=== PATIENT | female | born 1960 | race Caucasian/White ===

== ENCOUNTER 2024-09-17 12:44 | Outpatient (REF) | payer MEDICARE, SELFPAY ==
[2024-09-17 13:57] LABS: Anion Gap 11 (12-20); Blood Urea Nitrogen 13 mg/dL (9-16); Calcium 9.6 mg/dL (8.4-10.2); Carbon Dioxide 29 mmol/L (22-29); Chloride 106 mmol/L (96-108); Estimated Glomerular Filt Rate > 60; Glucose Random 85 mg/dL (60-115); Potassium 4.1 mmol/L (3.3-5.1); Sodium 142 mmol/L (135-145)
[2024-09-17 14:13] LABS: TSH reflex Free T4 1.17 uIU/mL (0.32-4.0)
[2024-09-17 14:32] LABS: Folate > 20.0 ng/mL (> or = 4.0); Vitamin B12 606 pg/mL (200-900)
== END 2024-09-17 12:45 | disposition home or self-care (01) ==
LOC: HO.LAB 12:44
PROVIDERS: PCP Physician Assistant Medical; Visit Provider Psychiatry & Neurology Neurology
DX: G31.84 Mild cognitive impairment of uncertain or unknown etiology (principal)
CPT/HCPCS: 36415; 80048; 82607; 82746; 84443

== ENCOUNTER → 2024-11-25 12:55 | Outpatient (REF) | payer MEDICARE, SELFPAY ==
--- OUTSIDE RECORDS SUMMARY | 2024-11-25 13:28 | XMS_ITS | Clinical Summary ---
Author Organization [facility] [address] [place] [address] [place] [address] Phone Care Team Providers Care Chamber Walker Name Role Phone Rich Bolanos Primary Care Provider [phone] Allergies Active Allergy Reactions Criticality Noted Date Comments Penicillins Other 09/19/2005 Dosen't remember Medications vitamin C tablet Take 1 tablet (100 mg total) by mouth 1 (one) time each day. 08/13/19 24 Active B complex tablet Take 1 tablet by mouth 1 (one) time each day. 08/13/19 24 Active bisacodyL (DULCOLAX) 5 mg EC tablet Take 2 tablets by mouth right before your first dose of liquid prep. 10/02/19 24 Active cholecalcifero l (VITAMIN D-3) 25 mcg (1,000 unit) tablet Take 1 tablet (1,000 Units total) by mouth 1 (one) time each day. 08/13/19 24 Active estradioL (ESTRACE) 0.01 % (0.1 mg/gram) vaginal cream APPLY TO VAGINAL OPENING EVERY SATURDAY, SATURDAY, AND SATURDAY DIRECTED 10/24/19 24 Active magnesium oxide (MAG-OX) 400 mg magnesium tablet Take 1 tablet (400 mg total) by mouth 2 (two) times a day. 08/13/19 24 Active multivitamin tablet Take 1 tablet by mouth 1 (one) time each day. 08/13/19 24 Active omega-3 acid ethyl esters (LOVAZA) 1 gram capsule Take 1 capsule (1 g total) by mouth 2 (two) times a day. 08/13/19 24 Active buPROPion XL (WELLBUTRIN XL) 150 mg 24 hr tablet Take 1 tablet (150 mg total) by mouth 1 (one) time each day in the morning. Do not crush, chew, or split. 30 each 11 05/15/19 25 Active triamcinolone (KENALOG) 0.1 % ointment APPLY TOPICALLY 3 TIMES A WEEK. 30 g 07/30/19 25 Active atorvastatin (LIPITOR) 40 mg tablet TAKE 1 TABLET BY MOUTH EVERY DAY 90 tablet 10/02/19 25 Active escitalopram (LEXAPRO) 10 mg tablet TAKE 1 TABLET BY MOUTH EVERY DAY 90 tablet 11/10/19 25 Active escitalopram (LEXAPRO) 10 mg tablet TAKE 1 TABLET BY MOUTH EVERY DAY 90 tablet 08/11/19 25 025 Discontinued Active Problems Problem Noted Date Diagnosed Date Dyspareunia in female 08/20/2018 Overview (03/18/2024): Last Assessment & Plan: Improved with treatment of LS and atrophy. Try coconut oil lubricant, preinsertion perineal massage, and superior positioning. 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 Continue [facility] Estrace. Lichen sclerosus 05/06/2018 Overview (03/18/2024): Last Assessment & Plan: Reviewed findings with patient. Well controlled. I reviewed the importance of regular maintenance topical steroid use to prevent symptoms, further scarring, and squamous cell cancer of the vulva. I also explained the importance of regular follow up to ensure she has no evidence of precancerous or cancerous changes and that she is not having side effects from her medication. I reviewed areas of application and amount of medication to use. Continue [facility] Mycolog. Vaginal atrophy 05/06/2018 Overview (03/18/2024): Last Assessment & Plan: Will switch from Vagifem to Estrace at the introitus which may have more benefit for dyspareunia. Reviewed similar low risk safety profile. Major depressive disorder with single episode Migraine 05/09/2016 Actinic keratosis 06/05/2011 Overview (03/18/2024): Actinic keratosis 05/27 right cheek Rosacea 03/25/2008 Mixed hyperlipidemia 01/31/2006 Encounters Date Type Department Care Team Description 09/23/2024 9:09 AM EDT - 09/23/2024 11:59 PM EDT Hospital Encounter Radiology Department - [address] [phone] Mild cognitive impairment of uncertain or unknown etiology Discharge Disposition: Home or Self Care 09/15/2024 10:00 AM EDT - 09/15/2024 11:59 PM EDT Hospital Encounter XRAY - [address] [phone] Unilateral primary osteoarthritis, left hip Discharge Disposition: Home or Self Care 09/04/[address] [phone] Rich Bolanos PA 08/27/2024 5:58 PM EDT - 08/27/2024 11:59 PM EDT Hospital Encounter Radiology Department - [address] [phone] Left lumbar radiculopathy; Inflammatory arthritis; Arthritis; Abnormal finding of blood chemistry, unspecified; Prediabetes; Subjective memory complaints Discharge Disposition: Home or Self Care from Last 3 Months Immunizations Name Administration Dates Next Due Influenza Quadravalent, MDCK , 0.5ml, preservative free (Flucelvax) 6mo and older 01/29/2020,02/20/2019 Influenza trivalent, 0.5mL, preservative free (Fluarix; FluLaval; Fluzone) ages 6mo and older (Afluria) 3 years and older 05/09/2016,02/22/2012 Zinc software SARS-CoV-2 COVID-19, mRNA, LNP-S, preservative free 08/25/2021,03/27/2021,08/04/2020,04/01/ 2021 Pneumococcal conjugate 20 va lent (Prevnar 20, PCV 20) 2mo and older 08/13/2023 Td Tetanus diptheria (Tdvax) 7yo and older 01/31/2006 Tdap Tetanus diptheria acell ular pertussis (Boostrix; Adacel) 7yo and older 05/09/2016 Surgical History Surgery Date Site/Laterality Comments COLONOSCOPY 07/20/2008 PROCEDURE: MO COLONOSCOPY FLX DX W/COLLJ SPEC WHEN PFRMD; COMMENT: Normal TONSILLECTOMY PROCEDURE: HISTORICAL TONSILLECTOMY COLONOSCOPY 01/26/2014 PROCEDURE: MO COLONOSCOPY FLX DX W/COLLJ SPEC WHEN PFRMD; COMMENT: Normal COLONOSCOPY 10/16/2023 PROCEDURE: HISTORICAL COLONOSCOPY; COMMENT: Normal 5 years Medical History Medical History Date Comments Mixed hyperlipidemia 01/31/2006 DX:Mixed hy perlipidemia Family history of colonic polyps 07/20/2008 DX:Family history of colonic polyps; COMMENT: Negative colonoscopy 07/20/2008, no colon cancer screening needed for 10 years. Historical Medical DX 02/02/2010 DX:Family history of cancer of the gastrointestinal tract Other specified personal his tory presenting hazards to health(V15.89) DX:Other specifie d personal history presenting hazards to health(V15.89); COMMENT: condyloma Family history of colon cancer 02/22/2012 D X:Family history of colon cancer Actinic keratosis, hx of DX:Acti gail keratosis, hx of Family History Medical History Relation Name Comments No Known Problems Aunt Other: not sure Father No Known Problems Maternal Grandfather No Known Problems Maternal Grandmother Colon cancer Mother Colon polyps Mother Hypertension Mother Stroke Mother Other: Ca other Mother's side no breast o r ovary; both maternal grandparents. No Known Problems Other No Known Problems Paternal Grandfather No Known Problems Paternal Grandmother No Known Problems Uncle Blindness Neg Hx Breast cancer Neg Hx Cataracts Neg Hx Glaucoma Neg Hx Macular degeneration Neg Hx Ovarian cancer Neg Hx Pancreatic cancer Neg Hx Prostate cancer Neg Hx Strabismus Neg Hx Uterine cancer Neg Hx Relation Name Status Comments Aunt Father Maternal Grandfather Maternal Grandmother Mother Alive hypertension , the patient is adopted , does not know anything about her father . no siblings Mother's side Other Paternal Grandfather Paternal Grandmother Uncle Social History Tobacco Use Types Packs/Day Years Used Date Smoking Tobacco: Never Smokeless Tobacco: Never Tobacco Cessation:Counseling Given: Not Answered Alcohol Use Standard Drinks/Week Comments Yes 0 (1 standard drink = 0.6 oz pur e alcohol) Housing Instability Answer Date Recorde d Are you worried that in the next 2 months you may not have stable housing? No 05/28/2024 Food Access & Nutrition Answer Date Rec orded Do you have access to a vari ety of food including fruits and vegetables? Yes 05/28/2024 Access to Healthcare Answer Date Record ed Within the last 3 months, ho w many times did you visit the emergency department for your medical care? 0 05/28/2024 Health Literacy Answer Date Recorded How often do you need to hav e someone help you when you read instructions, pamphlets, or other written material from your doctor or pharmacy? Never 05/28/2024 Caregiver: How often do you need to have someone help you when you read instructions, pamphlets, or other written material from your doctor or pharmacy? Not on file 05/28/2024 Financial Risk Answer Date Recorded How hard is it for you to pa y for the very basics like food, housing, medical care, and air conditioning / heating? Not very hard 05/28/2024 Transportation Answer Date Recorded Has the lack of transportati on kept you from meetings, work, or from getting things needed for daily living? No Has the lack of transportati on kept you from medical appointments or from getting medications? No 05/28/2024 Social Isolation Answer Date Recorded How often do you feel lonely or isolated from th ose around you? Never 05/28/2024 Food Risk Answer Date Recorded Within the past 12 months we worried whether our food would run out before we got money to buy more. Never true 05/28/2024 Within the past 12 months th e food we bought just didn't last and we didn't have money to get more. Never true 05/28/2024 Dependent Care Answer Date Recorded Do you need help finding or paying for care for your loved ones. For example, child care group leader or elderly care for an older adult? No 05/28/2024 Education Answer Date Recorded Do you think completing more education or training, like finishing a GED, going to college, or learning a trade, would be helpful for you? N/A 05/28/2024 Employment and Income Answer Date Recor ded During the last four weeks, have you been actively looking for work? No 05/28/2024 Living Situation Answer Date Recorded What is your living situation? 0 05/28/2024 Comments Unknown Sex and Gender Information Value Date Recorded Sex Assigned at Not on file Legal Sex Female 6:56 AM EST Gender Identity Not on file Sexual Orientation Not on file Obstetrics History Last Filed Vital Signs Vital Sign Reading Time Taken Comments Blood Pressure 152/82 08/18/2024 2:12 PM EDT A left arm Pulse 67 08/18/2024 2:12 PM EDT Temperature 36.2 C (97.2 F) 08/18/2024 1:34 PM EDT Respiratory Rate 14 08/18/2024 1:34 PM EDT Oxygen Saturation - - Inhaled Oxygen Concentration - - Weight 60.6 kg (133 lb 9.6 oz) 08/19/19 1:34 PM EDT Height 157.5 cm (5' 2 ) 08/18/2024 1:34 PM EDT Body Mass Index 24.44 08/18/2024 1:34 PM EDT Plan of Treatment Upcoming Encounters Date Type Department Care Team (Late st Contact Info) Description 01/21/2025 2:00 PM EDT Appointment Bone Density - [address] [phone] Health Maintenance Due Date Last Done Comments Zoster Vaccines (1 of 2) 1977 Osteoporosis Screening (Bone Density Screening) 03/24/2022 COVID-19 Vaccine ( season) 2023 08/25/2021, 03/27/2021, 08/04/2020, Additional history exists Medicare Annual Wellness Visit 08/12/2024 08/13/2023 Influenza Vaccine (#1) 2024 , 01/29/2020, 02/20/2019, Additional history exists Social Influencers of Health Screening 05/28/2025 05/28/2024 Breast Cancer Screening 06/05/2025 06/05/19 24, 04/02/2022, 12/26/2016 Falls Risk Assessment 08/18/2025 08/18/2024 DTaP,Tdap,and Td Vaccines (3 - Td or Tdap) 05/09/2026 05/09/2016, 01/31/2006 Cervical Cancer Screening: HPV 03/26/2027 03/26/2022 Colorectal Cancer Screening: Colonoscopy 10/15/2028 10/16/2023 Cholesterol Screening (Lipid Panel) 08/18/2029 08/18/2024, 08/13/2023, 08/13/2023 RSV Immunization Adult Patients (1 - 1-dose 75+ series) 2033 Hepatitis C Screening Completed 04/02/2014 Pneumococcal Vaccine: 50+ Years Completed 08/13/2023 Colorectal Cancer Screening: FIT-DNA (Cologuard) Discontinued 08/29/2023 Depression Screening Completed 08/11/2024, 08/13/19 24 HIB Vaccines Aged Out No longer eligi ble based on patient's age to complete this topic HPV Vaccines Aged Out No longer eligi ble based on patient's age to complete this topic Hepatitis A Vaccines Aged Out No long er eligible based on patient's age to complete this topic Hepatitis B Vaccines Aged Out No long er eligible based on patient's age to complete this topic IPV Vaccines Aged Out No longer eligi ble based on patient's age to complete this topic MMR Vaccines Aged Out No longer eligi ble based on patient's age to complete this topic Meningococcal ACWY Vaccine Aged Out N o longer eligible based on patient's age to complete this topic Meningococcal B Vaccine Aged Out No l onger eligible based on patient's age to complete this topic RSV Immunization Patients Under 20 months Aged Out No longer eligible based on patient's age to complete this topic Varicella Vaccines Aged Out No longer eligible based on patient's age to complete this topic Procedures Procedure Name Priority Date/Time Associated Diagnosis Comments MR BRAIN WO CONTRAST Routine 09/23/2024 9:51 AM EDT Mild cognitive impairment of uncertain or unknown etiology XR HIP 2-3 VIEWS LEFT Routine 09/15/2024 10:17 AM EDT Unilateral primary osteoarthritis, left hip MR LUMBAR SPINE WO CONTRAST Routine 08/27/2024 6:53 PM EDT Left lumbar radiculopathy Inflammatory arthritis Arthritis Abnormal finding of blood chemistry, unspecified Prediabetes Subjective memory complaints LIPID PANEL WITH REFLEX TO DIRECT LDL Routine 08/18/2024 2:41 PM EDT Left lumbar radiculopathy Inflammatory arthritis Arthritis Abnormal finding of blood chemistry, unspecified Prediabetes Subjective memory complaints COLONOSCOPY Routine 10/16/2023 DEPRESSION SCREENING Routine 08/13/2023 SCREENING MAMMOGRAPHY BI 2-VIEW BREAST INC CAD Routine 06/05/2023 11:26 AM EST Encounter for screening mammogram for malignant neoplasm of breast HPV Routine 03/26/2022 HEPATITIS C SCREENING Routine 04/02/2014 from Last 3 Months or Most Recently Relevant to Health Maintenance Results * MR Brain wo Contrast (09/23/2024 9:51 AM EDT) Anatomical Region Laterality Modality Head and Neck Magnetic Resonan ce 09/23/2024 1:55 PM EDT Impressions 09/24/2024 7:31 PM EDT Mildly progressive white matter signal abnormalities. No evidence of a recent infarction, intracranial hemorrhage, mass, or mass effect. POS - [id number] -------- FINAL REPORT -------- Dictated By: Colette Lugo Dictated Date: 09/23/2024 13:55 ET Assigned Physician: Colette Lugo Reviewed and Electronically Signed By: Colette Lugo Signed Date: 09/24/2024 19:31 ET Workstation ID: [id number] Transcribed By: Self Edit Transcribed Date: 09/23/2024 14:24 ET Narrative 09/24/2024 7:31 PM EDT EXAM: Brain MRI HISTORY: Memory impairment. COMPARISON: 11/03/2020 CORRELATION: None TECHNIQUE: Exam performed on a 1.5 Veronique high-field MRI scanner. Multiplanar imaging performed without contrast. FINDINGS: No restricted diffusion to indicate a recent infarct. No evidence of intracranial hemorrhage. Scattered T2/FLAIR hyperintense white matter signal abnormalities in the subcortical and deep white matter again noted. The dominant area in the right frontal lobe has enlarged now measuring up to 1.6 cm compared with 1.2 cm previously. Other smaller lesions have minimally enlarged and new lesions are present. Possible new small T2/FLAIR hyperintense area in the left fatmata. No evidence of a mass, mass effect, or midline shift. No hydrocephalus. Basal cisterns are patent. Chiari I malformation again noted.. Pituitary gland is not enlarged. Normal vascular flow-voids appear present in the major intracranial arteries at the skull base. No significant sinus disease in the visualized paranasal sinuses, signal artifact obscures portions of the left maxillary sinus. No significant fluid signal within mastoid air cells. Procedure Note Colette Lugo MD - 09/24/2024 EXAM: Brain MRI HISTORY: Memory impairment. COMPARISON: 11/03/2020 CORRELATION: None TECHNIQUE: Exam performed on a 1.5 Veronique high-field MRI scanner.Multiplanar imaging performed without contrast. FINDINGS: No restricted diffusion to indicate a recent infarct. No evidence ofintracranial hemorrhage. Scattered T2/FLAIR hyperintense white mattersignal abnormalities in the subcortical and deep white matter again noted.The dominant area in the right frontal lobe has enlarged now measuring upto 1.6 cm compared with 1.2 cm previously. Other smaller lesions haveminimally enlarged and new lesions are present. Possible new smallT2/FLAIR hyperintense area in the left fatmata. No evidence of a mass, mass effect, or midline shift. No hydrocephalus.Basal cisterns are patent. Chiari I malformation again noted.. Pituitarygland is not enlarged. Normal vascular flow-voids appear present in themajor intracranial arteries at the skull base. No significant sinus disease in the visualized paranasal sinuses, signalartifact obscures portions of the left maxillary sinus. No significantfluid signal within mastoid air cells. IMPRESSION: Mildly progressive white matter signal abnormalities. No evidence of arecent infarction, intracranial hemorrhage, mass, or mass effect. POS - [id number] -------- FINAL REPORT -------- Dictated By: Colette Lugo Dictated Date: 09/23/2024 13:55 ET Assigned Physician: Colette Lugo Reviewed and Electronically Signed By: Colette Lugo Signed Date: 09/24/2024 19:31 ET Workstation ID: [id number] Transcribed By: Self Edit Transcribed Date: 09/23/2024 14:24 ET Qasim Gore MD IMG MRI PROCEDURES Final Result * XR Hip 2-3 Views Left (09/15/2024 10:17 AM EDT) Anatomical Region Laterality Modality Lower Extremities, Hip Left Radiograp hic Imaging 09/15/2024 12:2 4 PM EDT Impressions 09/15/2024 12:25 PM EDT No acute fracture or dislocation of the left hip. Moderate osteoarthritic degenerative changes of the left hip -------- FINAL REPORT -------- Dictated By: Jerrell Dumont Dictated Date: 09/15/2024 12:24 ET Assigned Physician: Jerrell Dumont Reviewed and Electronically Signed By: Jerrell Dumont Signed Date: 09/15/2024 12:25 ET Workstation ID: [id number] Transcribed By: Self Edit Transcribed Date: 09/15/2024 12:24 ET Narrative 09/15/2024 12:25 PM EDT HISTORY: unilateral primary osteoarthritis left hip TECHNIQUE: Frontal and lateral radiographs of the left hip.An AP radiograph of the pelvis was obtained to assess joint symmetry. COMPARISON: None FINDINGS: No acute fracture or dislocation. There is moderate joint space narrowing at the left hip with subchondral sclerosis. Femoral head is well-seated within the acetabulum. Small osteophytes at the inferior femoral head. Large amount stool throughout the colon. Procedure Note Jerrell Dumont MD - 09/15/2024 HISTORY: unilateral primary osteoarthritis left hip TECHNIQUE: Frontal and lateral radiographs of the left hip.An APradiograph of the pelvis was obtained to assess joint symmetry. COMPARISON: None FINDINGS: No acute fracture or dislocation. There is moderate joint space narrowingat the left hip with subchondral sclerosis. Femoral head is well-seatedwithin the acetabulum. Small osteophytes at the inferior femoral head.Large amount stool throughout the colon. IMPRESSION: No acute fracture or dislocation of the left hip. Moderate osteoarthritic degenerative changes of the left hip -------- FINAL REPORT -------- Dictated By: Jerrell Dumont Dictated Date: 09/15/2024 12:24 ET Assigned Physician: Jerrell Dumont Reviewed and Electronically Signed By: Jerrell Dumont Signed Date: 09/15/2024 12:25 ET Workstation ID: [id number] Transcribed By: Self Edit Transcribed Date: 09/15/2024 12:24 ET Jr Michael DO IMG XR PROCEDURES Final Result * MR Lumbar Spine wo Contrast (08/27/2024 6:53 PM EDT) Anatomical Region Laterality Modality L-spine, Spine Magnetic Resonan ce 08/28/2024 3:26 AM EDT Impressions 08/28/2024 3:37 AM EDT Multilevel lumbar spondylosis, as above, most prominent at L3-L4, L4-L5 and L5- S1 -------- FINAL REPORT -------- Dictated By: Kamila Barriga Dictated Date: 08/28/2024 03:26 ET Assigned Physician: Kamila Barriga Reviewed and Electronically Signed By: Kamila Barriga Signed Date: 08/28/2024 03:37 ET Workstation ID: [id number] Transcribed By: Self Edit Transcribed Date: 08/28/2024 03:26 ET Narrative 08/28/2024 3:37 AM EDT INDICATION: Left leg pain, lumbar radiculopathy COMPARISON: None TECHNIQUE: Multiplanar, multisequence MRI was performed of the lumbar spine without IV contrast. FINDINGS: Study assumes 5 lumbar type vertebral bodies. Grade 1 retrolisthesis of L1 on L2 and grade 1 anterolisthesis of L4 on L5.. Conus terminates at L1. Bone marrow signal is heterogeneous. Visualized cord signal is unremarkable. Multilevel disc desiccation. Disc space height loss at 4 L5. Multilevel anterior marginal osteophyte formation. Specific findings are seen at the following levels: L1-L2:Disc bulge with ligamentum flavum infolding and facet arthropathy without significant spinal canal stenosis or neural foraminal narrowing. Left-sided perineural cysts. L2-L3:Ligamentum flavum infolding with facet arthropathy. No significant spinal canal stenosis or neural foraminal narrowing. L3-L4:Diffuse disc bulge with ligamentum flavum infolding and facet arthropathy which effaces the ventral thecal sac and results in mild to moderate spinal canal stenosis. Mild bilateral neural foraminal narrowing. L4-L5:Uncovering of the disc with ligamentum flavum infolding and facet arthropathy which results in severe spinal canal stenosis. Mild to moderate bilateral neural foraminal narrowing. L5-S1:Disc bulge with ligamentum flavum infolding and facet arthropathy which effaces the ventral thecal sac and results in mild spinal canal stenosis. There is mild to moderate bilateral neural foraminal narrowing. Miscellaneous: Visualized SI joints, paraspinal muscles and retroperitoneum are unremarkable. Procedure Note Kamila Barriga MD - 08/28/2024 INDICATION: Left leg pain, lumbar radiculopathy COMPARISON: None TECHNIQUE: Multiplanar, multisequence MRI was performed of the lumbarspine without IV contrast. FINDINGS: Study assumes 5 lumbar type vertebral bodies. Grade 1 retrolisthesis ofL1 on L2 and grade 1 anterolisthesis of L4 on L5.. Conus terminates atL1. Bone marrow signal is heterogeneous. Visualized cord signal isunremarkable. Multilevel disc desiccation. Disc space height loss at 4L5. Multilevel anterior marginal osteophyte formation. Specific findingsare seen at the following levels: L1-L2:Disc bulge with ligamentum flavum infolding and facet arthropathywithout significant spinal canal stenosis or neural foraminal narrowing.Left-sided perineural cysts. L2-L3:Ligamentum flavum infolding with facet arthropathy. No significantspinal canal stenosis or neural foraminal narrowing. L3-L4:Diffuse disc bulge with ligamentum flavum infolding and facetarthropathy which effaces the ventral thecal sac and results in mild tomoderate spinal canal stenosis. Mild bilateral neural foraminalnarrowing. L4-L5:Uncovering of the disc with ligamentum flavum infolding and facetarthropathy which results in severe spinal canal stenosis. Mild tomoderate bilateral neural foraminal narrowing. L5-S1:Disc bulge with ligamentum flavum infolding and facet arthropathywhich effaces the ventral thecal sac and results in mild spinal canalstenosis. There is mild to moderate bilateral neural foraminalnarrowing. Miscellaneous: Visualized SI joints, paraspinal muscles andretroperitoneum are unremarkable. IMPRESSION: Multilevel lumbar spondylosis, as above, most prominent at L3-L4, L4-L5and L5-S1 -------- FINAL REPORT -------- Dictated By: Kamila Barriga Dictated Date: 08/28/2024 03:26 ET Assigned Physician: Kamila Barriga Reviewed and Electronically Signed By: Kamila Barriga Signed Date: 08/28/2024 03:37 ET Workstation ID: [id number] Transcribed By: Self Edit Transcribed Date: 08/28/2024 03:26 ET Rich OREILLY IM MRI PROCEDURES Final Result * (ABNORMAL) Lipid panel with reflex to direct LDL (08/18/2024 2:41 PM EDT) Cholesterol 223(H) 0 - 200 mg/dL LAB CHEMISTRY METHOD 08/18/2024 5:40 PM EDT [facility] Triglycerides 65 0 - 150 mg/dL LAB CHEMISTRY METHOD 08/18/2024 5:40 PM EDT [facility] HDL 89 >=40 mg/dL LAB CHEMISTRY METHOD 08/18/2024 5:40 PM EDT [facility] LDL Calculated 121(H) 0 - 100 mg/dL LAB CHEMISTRY METHOD 08/18/2024 5:40 PM EDT [facility] VLDL Cholesterol Ju[place]o 13 mg/dL LAB CHEMISTRY METHOD 08/18/2024 5:40 PM EDT [facility] Non HDL Chol. (LDL+VLDL) 134 <145 mg/dL LAB CHEMISTRY METHOD 08/18/2024 5:40 PM EDT [facility] Chol/HDL Ratio 2.5 0.0 - 4.4 LAB CHEMISTRY METHOD 08/18/2024 5:40 PM [facility] Blood Venous blood specimen / Unknown Venipuncture / Unknown 08/18/2024 2:41 PM EDT 08/18/2024 2:41 PM EDT Rich OREILLY LAB BLOOD ORDERABLES Mariann l Result [facility] [address] [place] [address], * Colonoscopy (10/16/2023) Colonoscopy no interpretation , abstracted Anatomical Region Laterality Modality Other Historical Provider MD HEALTH MAINTENANCE Final Result * Depression Screening (08/13/2023) Depression Screening abstracted Historical Provider MD HEALTH MAINTENANCE Final Result * SCREENING MAMMOGRAPHY BI 2-VIEW BREAST INC CAD (06/05/2023 11:26 AM EST) Anatomical Region Laterality Modality Radiographic Eugenia ging 04/02/2022 9:05 AM EST Narrative 06/05/2023 7:09 PM EST This is a summary report. The complete report is available in the patient's medical record. If you cannot access the medical record, please contact the sending organization for a detailed fax or copy. Exam: Screening mammogram Findings: Digital bilateral full-field screening mammography is performed with tomosynthesis and interpreted with the aid of computer-aided detection. Comparison is made with 04/02/2022 and 12/26/2016. Breast parenchyma is composed of scattered fibroglandular densities. No new suspicious mass, architectural distortion, or suspicious calcifications. Impression: No mammographic evidence of malignancy. BI-RADS 1 - negative Procedure Note Colette Lugo MD - 12/02/2023 This is a summary report. The complete report is available in thepatient's medical record. If you cannot access the medical record, pleasecontact the sending organization for a detailed fax or copy. Exam: Screening mammogram Findings: Digital bilateral full-field screening mammography is performedwith tomosynthesis and interpreted with the aid of computer-aideddetection. Comparison is made with 04/02/2022 and 12/26/2016. Breast parenchyma is composed of scattered fibroglandular densities. Nonew suspicious mass, architectural distortion, or suspiciouscalcifications. Impression: No mammographic evidence of malignancy. BI-RADS 1 - negative Janette Cox MD IMG XR PROCEDURES Final Res ult * Cervical Cancer Screening: HPV (03/26/2022) Cervical Cancer Screening: HPV negative, abstracted Historical Provider HEALTH MAINTENANCE Final Result * Hepatitis C Screening (04/02/2014) Hepatitis C Screening abstracted Historical Provider HEALTH MAINTENANCE Final Result from Last 3 Months or Most Recently Relevant to Health Maintenance Insurance MEDICARE [facility] Care Teams Chamber Walker Relationship Specialty Start Date End Date Rich Bolanos PA [address] [place] [address] PCP - General Internal Medicine 09/21/20
--- OUTSIDE RECORDS SUMMARY | 2024-11-25 13:28 | XMS_ITS | Clinical Summary ---
Author Organization [facility] Address [address] [place] [address] Phone Care Team Providers Care Decontaminator Name Role Phone Unavailable Primary Care Provider Unavailabl e Social History Tobacco Use Types Packs/Day Years Used Date Smoking Tobacco: Never Assessed Comments Unknown Sex and Gender Information Value Date Recorded Sex Assigned at Not on file Legal Sex Female 8:12 PM EST Gender Identity Not on file Sexual Orientation Not on file Plan of Treatment Not on file Medical Devices Not on file Additional Source Comments The information contained in this document represents components of the legal health record. It is not the complete legal health record.[facility]
== END ==
LOC: HO.SL 12:55
PROVIDERS: PCP Physician Assistant Medical; Visit Provider Psychiatry & Neurology Neurology
DX: G47.10 Hypersomnia, unspecified (principal); G47.30 Sleep apnea, unspecified
CPT/HCPCS: 95806

== ENCOUNTER → 2024-11-25 21:00 | Outpatient (BNV) | payer MEDICARE, SELFPAY | PROVIDERS: PCP Physician Assistant Medical; Visit Provider Internal Medicine | DX: G47.10 Hypersomnia, unspecified (principal) | CPT/HCPCS: 95806 ==

== ENCOUNTER 2025-01-19 14:44 | Outpatient (AMB) | payer MEDICARE, SELFPAY ==
--- NOTE | 2025-01-19 15:02 | MHC.OFFVIS ---
Intake Visit Reasons: MRI review Allergies Penicillins Allergy (Unknown, Verified 01/18/25 11:22) Unknown HPI Comments Details: This is a 64-year-old woman who is here with her regarding some concerns about her cognitive health.?She feels fine. He feels it has not changed. She has some difficulty with names of people and it takes her longer to figure things out.? She takes longer to process information and reply and sometimes has difficulty with word searching for common words.? Her confirms that this has been going on for 2 years.? He also notes that she gets overwhelmed with information.? She has had some increased anxiety and has a history of depression which is under control.? There is no history of head trauma.? No physical complaints.? She has not lost any functional ability.? She still drives but has always been bad with directions. Lately, she's been snoring more.? On a few occasions he has found her not breathing for a minute and then waking up with? a snorting sound. Used to get a lot of bad migraines in her past. [facility] Medical History (Updated 01/19/25 @ 15:20 by Qasim Gore MD) Sleep apnea MCI (mild cognitive impairment) Review of Systems Const Details: ?Sleep:? Difficulty getting to sleepdenies.? Difficulty maintaining sleepdenies?.? Urge to move legsdenies.? Teeth grindingdenies.? Shouting or Kicking during sleepdenies.? Abnormal behavior during sleepdenies.? Excessive sleepadmits.? Snoringadmits.? Daytime sleepinessdenies. ???General/Constitutional:? Change in appetitedenies.? Chillsdenies.? Fatiguedenies.? Feverdenies.? Weight gaindenies.? Weight lossdenies. ???Ophthalmologic:? Blurred visiondenies.? Diminished visual acuitydenies. ???ENT:? Stuffinessdenies.? Decreased hearingadmits.? Dry mouthdenies.? Ear paindenies.? Nosebleeddenies.? Ringing in the earsdenies.? Sinus paindenies.? Sore throatdenies.? Swollen glandsdenies. ???Endocrine:? Cold intolerancedenies.? Excessive thirstdenies.? Frequent urinationdenies.? Heat intolerancedenies. ???Respiratory:? Shortness of breathdenies.? Chest paindenies.? Coughdenies. ???Breast:? Breast lumpdenies.? Nipple dischargedenies. ???Cardiovascular:? Chest pain at restdenies.? Chest pain with exertiondenies.? Claudicationdenies.? Dizzinessdenies.? Fluid accumulation in the legsdenies.? Irregular heartbeatdenies.? Palpitationsdenies. ???Gastrointestinal:? Abdominal paindenies.? Constipationdenies.? Diarrheadenies.? Difficulty swallowingdenies.? Heartburndenies.? Nauseadenies.? Rectal bleedingdenies. ???Hematology:? Easy bruisingdenies.? Prolonged bleedingdenies. ???Genitourinary:? Frequent urinationdenies.? Urgencydenies.? Incontinencedenies.? Erectile Dysfunctiondenies. ???Musculoskeletal:? Neck paindenies.? Back paindenies.? Muscle achesadmits.? Painful jointsadmits.? Sciaticadenies.? Weaknessleft lg?. ???Podiatric:? Difficulty walkingdenies.? Foot numbnessdenies. ???Neurologic:? Difficulty swallowingdenies.? Balance difficultydenies.? Coordinationnormal.? Difficulty speakingdenies.? Dizzinessdenies.? Faintingdenies.? Gait abnormalitydenies.? Headachedenies.? Loss of strengthdenies.? Loss of use of extremitydenies.? Low back paindenies.? Memory lossadmits.? Seizuresdenies.? Ticsdenies.? Tingling/Numbnessleft leg and face.? Transient loss of visiondenies.? Tremordenies. ???Psychiatric:? Anxietyadmits.? Auditory/visual hallucinationsdenies.? Delusionsdenies.? Depressed moodadmits.? Stressorsdenies.? Substance abusedenies.? Suicidal thoughtsdenies. Physical Exam Neuro Other: Neurological: Abnormal neurological findings:??MMS 30/30?.?Mental Status:??alert and oriented X 3,?Normal attention, orientation, memory and affect.?Cranial Nerves:??Pupils are equal, round and reactive to light. Fundoscopy shows normal disc bilaterally. External occular muscles are intact. Visual evans are full, no ptosis. Face is symmetrical, no facial weakness or droop. Facial sensations are normal. Tongue protrudes in midline. Palate elevates symmetrically. Shoulder shrugging is normal..?Motor Examination:??Normal muscle tone, bulk and strength,?No atrophy or fasciculations,?No drift of the extended upper extremities,?Deep tendon reflexes are 2+?,?Plantars are flexor?.?Motor Strength:?Proximal Muscles (out of 5):5Distal Muscles (out of 5):5Neck Flexors (out of 5):5Neck Extensors (out of 5):5Deltoid (out of 5):5Biceps (out of 5):5Triceps (out of 5):5Serratus Anterior (out of 5):5Wrist Extensors (out of 5):5APB (out of 5):5Finger Spread (out of 5):5Ileopsoas (out of 5):5Quadriceps (out of 5):5Hamstrings (out of 5):5Tibialis Anterior (out of 5):5Peronei (out of 5):5EDB (out of 5):5Gastrocnemius (out of 5):5Straight Leg Raising:??90 degrees.?Sensory Exam:??Normal light touch, temperature, pinprick, vibration and joint-position sensations?,?Rhomberg sign is absent.?Coordination:??no ataxia,?no titubation,?sehyht-rp-tnzj, mzbk-lzpi-aslh test and rapid alternating movements were normal.?Gait Exam:??Within normal limits.?Cerebellar Signs:??Vmkiqz-bw-diec and bkay-bv-anfl is normal,?no dysdiadochokinesia?.?Extrapyramidal System:??No tremor, rigidity with normal facial expressions,?No bradykinesia, no bradyphrenia. Normal arm swing and posture. No propulsion or retropulsion.?Speech:??Normal,?no dysphasia or dysarthria..? Mini Mental Status Exam: Level of Consciousness:??Alert.?Orientation:??Knows correct year, month, date, day and season,?Knows correct city, county and state. Knows correct location and floor.?Registration:??Able to register 3 objects.?Attention:??Serial 7's performed accurately to 65.?Recall:??Able to recall 3 out of 3 objects.?Language:??Normal spontaneous speech, fluency, repetition,naming, comprehension, reading and writing.?Total Score:??30/30.? General Examination: GENERAL APPEARANCE:??normal,?in no acute distress.?HEAD:??normocephalic,?atraumatic.?EYES:??sclera non-icteric,?conjunctiva clear.?EARS:??auditory canal clear,?tympanic membrane intact, clear.?NOSE:??no lesions.?ORAL CAVITY:??gums normal,?mucosa moist,?no lesions.?THROAT:??clear.?NECK/THYROID:??no cervical lymphadenopathy,?thyroid normal,?neck supple, full range of motion,?no carotid bruit.?SKIN:??no rashes,?no significant birthmarks.?HEART:??S1, S2 normal,?no murmurs.?LUNGS:??clear anteriorly and posteriorly.?CHEST:??no gross rib deformity,?clear to auscultation.?BACK:??normal exam of spine.?EXTREMITIES:??no edema.?PERIPHERAL PULSES:??normal.?PSYCH:??alert, oriented,?cognitive function intact,?cooperative with exam.? Assessment & Plan Assessment & Plan (1) MCI (mild cognitive impairment): Comment: September 2024 labs normal 09/23/2024 MRI of the brain scattered T2/FLAIR hyperintense white matter signal abnormalities in the subcortical and deep white matter with slight progression compared to the MRI of October 2020 the largest area in the right frontal lobe measures 1.6 cm possible new small T2/FLAIR hyperintensity in the left fatmata Chiari type 1 malformation Code(s): G31.84 - Mild cognitive impairment of uncertain or unknown etiology Category: Medical (2) Sleep apnea: Comment: 11/25/2024 normal home sleep study with no evidence of obstructive sleep apnea Code(s): G47.30 - Sleep apnea, unspecified Category: Medical (3) White matter abnormality present on magnetic resonance imaging: Code(s): R90.82 - White matter disease, unspecified Category: Medical Plan Labs, normal sleep study and MRI abnormalities were reviewed with the patient and her . At this point we have decided not to pursue further workup. A follow-up MRI in 2 years is recommended for comparison Coding Level of Care Code Est Pt Level 4 (92472) Diagnoses MCI (mild cognitive impairment) G31.84 Sleep apnea G47.30 White matter abnormality present on magnetic resonance imaging R90.82
--- OUTSIDE RECORDS SUMMARY | 2025-01-19 18:01 | XMS_ITS | Encounter Summary ---
Author Organization [facility] Address [address] [place] [address] Care Team Providers Care Java Analyst Name Role Phone Rich Bolanos PA-C Primary Care Provider [phone] Reason for Visit * Reason Comments E-prescribe Rx Request Encounter Details Date Type Department Care Team Description 09/28/[address] [facility] [address] [place] [id number] Rich Bolanos PA-C [address] [place] [address] [phone] E-prescribe Rx Request Social History Tobacco Use Types Packs/Day Years Used Date Smoking Tobacco: Never Smokeless Tobacco: Never Alcohol Use Standard Drinks/Week Comments Yes 0 (1 standard drink = 0.6 oz pur e alcohol) rarely Sex Assigned at Date Recorded Not on file Job Start Date Occupation Industry Not on file Not on file Not on file documented as of this encounter Miscellaneous Notes * Telephone Encounter - William Pearson M.A. - 09/29/2023 5:28 PM EDT Last ov 08/13/23 next ov 01/31/24 Lab Results Component Value Date NA 142 08/13/2023 K 4.5 08/13/2023 CO2 27 08/13/2023 CL 109 08/13/2023 BUN 10 08/13/2023 CREAT 0.89 08/13/2023 GLU 91 08/13/2023 CA 9.0 08/13/2023 GFR 72 08/13/2023 documented in this encounter Plan of Treatment Not on file documented as of this encounter Visit Diagnoses Not on filedocumented in this encounter Additional Health Concerns Infection Onset Date Last Indicated Resolved Time COVID-19 Comment:Patient reporting positive test 12/2312/23/2022 12/24/2022 documented as of this encounter Care Teams Java Analyst Relationship Specialty Start Date End Date Rich Bolanos PA-C [address] [place] [address] PCP - General Internal Medicine 09/21/20 documented as of this encounter
--- OUTSIDE RECORDS SUMMARY | 2025-01-19 18:01 | XMS_ITS | Encounter Summary ---
Author Organization [facility] Address [address] [place] [address] Care Team Providers Care Warp Knitter Name Role Phone Rogelio Taylor MD Primary Care Provider + [phone] Rich Bolanos PA-C Primary Care Provider [phone] Encounter Details Date Type Department Care Team Description 10/10/2017 Release of Information Medical Records [address] [place] [id number] Abstract, Provider Social History Tobacco Use Types Packs/Day Years Used Date Smoking Tobacco: Never Smokeless Tobacco: Never Alcohol Use Standard Drinks/Week Comments Yes 0 (1 standard drink = 0.6 oz pur e alcohol) 8 drinks per yr Sex Assigned at Date Recorded Not on file Job Start Date Occupation Industry Not on file Not on file Not on file documented as of this encounter Plan of Treatment Not on file documented as of this encounter Visit Diagnoses Not on filedocumented in this encounter Additional Health Concerns Infection Onset Date Last Indicated Resolved Time COVID-19 Comment:Patient reporting positive test 12/2312/23/2022 12/24/2022 documented as of this encounter Care Teams Warp Knitter Relationship Specialty Start Date End Date Rogelio Taylor MD [address] [place] [address] PCP - General 03/07/2000 09/20/20 Rich Bolanos PA-C [address] [place] [address] [phone] PCP - General Internal Medicine 09/21/20 documented as of this encounter
--- OUTSIDE RECORDS SUMMARY | 2025-01-19 18:01 | XMS_ITS | Encounter Summary ---
Author Organization [facility] Address [address] [place] [address] Care Team Providers Care Architect Naval Name Role Phone Rogelio Taylor MD Primary Care Provider + [phone] Rich Bolanos PA-C Primary Care Provider [phone] Reason for Visit * Reason Comments E-prescribe Rx Request Encounter Details Date Type Department Care Team Description 03/23/2019 Refill OBGYN - [place] [address] [place] [address] Janette Henry MD [address] [place] [address] [phone] E-prescribe Rx Request Social History Tobacco Use [...] encounter Miscellaneous Notes * Telephone Encounter - Carline Mcintosh - 03/24/2019 11:35 AM EST Pt has upcoming appointment 03/31/[address] henry please consider refill * Telephone Encounter - Kristal Henderson - 03/24/2019 11:13 AM EST WHEN WAS THE PATIENTS LAST ANNUAL WELT SLASHER EXAM? 01/23/18 Does patient have an upcoming appointment? Yes 03/31/19 (THE MEDICATION REQUESTED IS ON THE MED LIST ABOVE) Did you check the Pharmacy information above?: NO Indicate how soon the patient needs the script: HARSHA Patient would like script to be: E-PRESCRIBED/FAXED TO PHARMACY Is the doctor here today?: YES Can the message wait until the doctor returns?: NO Has the patient been told that the prescription will not be filled until the end of the day? NO Payor: [employer] FFS / Plan: [facility] [employer] / Product Type: MEDICAID RISK documented in this encounter Plan of Treatment Not on file documented as of this encounter Visit Diagnoses Diagnosis Lichen sclerosus Circumscribed scleroderma Vaginal atrophy Postmenopausal atrophic vaginitis documented in this encounter Additional Health Concerns Infection Onset Date Last Indicated Resolved Time COVID-19 Comment:Patient reporting positive test 12/2312/23/2022 12/24/2022 documented as of this encounter Care Teams Architect Naval Relationship Specialty Start Date End Date Rogelio Taylor MD [address] [place] [address] PCP - General 03/07/2000 09/20/20 Rich Bolanos PA-C [address] [place] [address] [phone] PCP - General Internal Medicine 09/21/20 documented as of this encounter
--- OUTSIDE RECORDS SUMMARY | 2025-01-19 18:01 | XMS_ITS | Encounter Summary ---
Author Organization [facility] Address [address] [place] [address] Care Team Providers Care Boarding House Manager Name Role Phone Rogelio Taylor MD Primary Care Provider + [phone] Rich Bolanos PA-C Primary Care Provider [phone] Encounter Details Date Type Department Care Team Description 10/18/2017 [employer] Physical Education Teacher Report Medical Records [address] [place] [phone] Abstract, Provider Social History Tobacco Use Types [...] documented as of this encounter Care Teams Boarding House Manager Relationship Specialty Start Date End Date Rogelio Taylor MD [address] [place] [address] PCP - General 03/07/2000 09/20/20 Rich Bolanos PA-C [address] [place] [address] PCP - General Internal Medicine 09/21/20 documented as of this encounter
--- OUTSIDE RECORDS SUMMARY | 2025-01-19 18:01 | XMS_ITS | Encounter Summary ---
Author Organization [facility] Address [address] [place] [address] Care Team Providers Care Wrapper Sheeter Name Role Phone Rogelio Taylor MD Primary Care Provider + [phone] Rich Bolanos PA-C Primary Care Provider [phone] Reason for Visit * Reason Onset Date Comments refill request 03/13/2020 Encounter Details Date Type Department Care Team Description 03/13/2020 Refill Adult Medicine [address] [address] Rogelio Taylor MD [address] [place] [address] [phone] refill request Social History Tobacco Use Types Packs/Day Years [...] encounter Miscellaneous Notes * Telephone Encounter - Lara Whyte M.A. - 03/14/2020 2:59 PM EST Lab Results Component Value Date CHOL 224 01/19/2020 LDL 116 01/19/2020 HDL 88 01/19/2020 TRIG 100 01/19/2020 SGOT 18 01/19/2020 SGPT 20 01/19/2020 * Telephone Encounter - Carline Sawyer - 03/13/2020 1:43 PM EST Patient would like script to be: E-PRESCRIBED/FAXED TO PHARMACY WHEN WAS THE PATIENT'S LAST APPOINTMENT IN ADULT MEDICINE? 08/21/2019 WHEN WAS THE LAST TIME THE PATIENT SAW THEIR PCP? 07/15/18 Does patient have an upcoming appointment? No-unable to reach left [facility] to call for appointment due to refill request. Appt due (THE MEDICATION REQUESTED IS ON THE MED LIST ABOVE) All of the medications requested were on the CURRENT MEDS list Did you check the Pharmacy information above?: YES Patient wants: 90 -day supply Is this a mail order prescription request ? NO If the refill is from a FAXED refill request what is the RX # listed on the fax? N/A Patients current insurance carrier is: Payor: [employer] FFS / Plan: [employer] / Product Type: MEDICAID RISK documented in this encounter Plan of Treatment Not on file documented as of this encounter Visit Diagnoses Not on filedocumented in this encounter Additional Health Concerns Infection Onset Date Last Indicated Resolved Time COVID-19 Comment:Patient reporting positive test 12/2312/23/2022 12/24/2022 documented as of this encounter Care Teams Wrapper Sheeter Relationship Specialty Start Date End Date Rogelio Taylor MD [address] [place] [address] PCP - General 03/07/2000 09/20/20 Rich Bolanos PA-C [address] [place] [address] PCP - General Internal Medicine 09/21/20 documented as of this encounter
--- OUTSIDE RECORDS SUMMARY | 2025-01-19 18:01 | XMS_ITS | Encounter Summary ---
Author Organization [facility] Address [address] [place] [address] Care Team Providers Care Audio Engineer Name Role Phone Rogelio Taylor MD Primary Care Provider + [phone] Rich Bolanos PA-C Primary Care Provider Reason for Visit * Reason Comments E-prescribe Rx Request Encounter Details Date Type Department Care Team Description 04/19/2018 Refill OBGYN - [place] [address] [place], [place] [phone] Anahi Sandoval MD E-prescribe Rx Request Social History Tobacco Use [...] encounter Miscellaneous Notes * Telephone Encounter - Pamela Carter - 04/21/2018 10:35 AM EST WHEN WAS THE PATIENTS LAST ANNUAL WAREHOUSE DISTRIBUTION MANAGER EXAM? 01/2018 Does patient have an upcoming appointment? Yes [facility] 05/06/18 (THE MEDICATION REQUESTED IS ON THE MED LIST ABOVE) Did you check the Pharmacy information above?: NO Indicate how soon the patient needs the script: BY THE END OF THE DAY Patient would like script to be: E-PRESCRIBED/FAXED TO PHARMACY Is the doctor here today?: NO Can the message wait until the doctor returns?: NO Has the patient been told that the prescription will not be filled until the end of the day? NO Payor: [employer] FFS / Plan: [employer] / Product Type: MEDICAID RISK documented in this encounter Plan of Treatment Not on file documented as of this encounter Visit Diagnoses Diagnosis Atrophic vaginitis Postmenopausal atrophic vaginitis documented in this encounter Additional Health Concerns Infection Onset Date Last Indicated Resolved Time COVID-19 Comment:Patient reporting positive test 12/2312/23/2022 12/24/2022 documented as of this encounter Care Teams Audio Engineer Relationship Specialty Start Date End Date Rogelio Taylor MD [address] [place] [phone] PCP - General 03/07/2000 09/20/20 Rich Bolanos PA-C [address] [place] [address] PCP - General Internal Medicine 09/21/20 documented as of this encounter
--- OUTSIDE RECORDS SUMMARY | 2025-01-19 18:01 | XMS_ITS | Encounter Summary ---
Author Organization [facility] Address [address] [place] [address] Care Team Providers Care Fisher Trap Name Role Phone Rogelio Taylor MD Primary Care Provider + [phone] Rich Bolanos PA-C Primary Care Provider [phone] Reason for Visit * Reason Comments E-prescribe Rx Request Encounter Details Date Type Department Care Team Description 07/31/2019 Refill OBGYN - [place] [address] [place] [address] Janette Cox MD [address] [place] [phone] E-prescribe Rx Request Social History Tobacco Use [...] encounter Miscellaneous Notes * Telephone Encounter - Erica Light C.M.A. - 07/31/2019 3:30 PM EDT Please consider refill for pt. DL * Telephone Encounter - Pamela Carter - 07/31/2019 3:15 PM EDT WHEN WAS THE PATIENTS LAST ANNUAL SENIOR MEDICAL TRANSCRIPTIONIST EXAM? 01/2018 Does patient have an upcoming appointment? No (THE MEDICATION REQUESTED IS ON THE MED [...] the end of the day? 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
--- OUTSIDE RECORDS SUMMARY | 2025-01-19 18:01 | XMS_ITS | Clinical Summary ---
Author Organization [facility] [address] [place] [address] [place] [address] Phone Care Team Providers Care Air Brake Man Name Role Phone Rich Bolanos Primary Care Provider [phone] Allergies Active Allergy Reactions Criticality Noted Date [...] A WEEK. 30 g 07/30/19 25 Active escitalopram (LEXAPRO) 10 mg tablet TAKE 1 TABLET BY MOUTH EVERY DAY 90 tablet 11/10/19 25 Active atorvastatin (LIPITOR) 40 mg tablet TAKE 1 TABLET BY MOUTH EVERY DAY 90 tablet 12/30/19 25 Active atorvastatin (LIPITOR) 40 mg tablet TAKE 1 TABLET BY MOUTH EVERY DAY 90 tablet 10/02/19 25 025 Discontinued Active Problems Problem Noted Date Diagnosed Date Dyspareunia in female 08/20/2018 Overview (03/18/2024): Last Assessment & Plan: Improved with treatment of LS and atrophy. Try coconut oil lubricant, preinsertion perineal massage, and superior positioning. 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 Continue [facility] Estrace. Lichen sclerosus 05/06/2018 Overview (03/18/2024): Last [...] and amount of medication to use. Continue [facility] Mycolog. Vaginal atrophy 05/06/2018 Overview (03/18/2024): Last Assessment & Plan: Will switch from Vagifem to Estrace at the introitus which may have more benefit for dyspareunia. Reviewed similar low risk safety profile. Major depressive disorder with single episode Migraine 05/09/2016 Actinic keratosis 06/05/2011 Overview (03/18/2024): Actinic keratosis 05/27 right cheek Rosacea 03/25/2008 Mixed hyperlipidemia 01/31/2006 Immunizations Immunization Administration Dates Next Due Influenza Quadravalent, MDCK , 0.5ml, preservative free (Flucelvax) 6mo and older 01/29/2020,02/20/2019 Influenza trivalent, 0.5mL, preservative free (Fluarix; FluLaval; Fluzone) ages 6mo and older (Afluria) 3 years and older 05/09/2016,02/22/2012 Pfizer SARS-CoV-2 COVID-19, mRNA, LNP-S, preservative free 08/25/2021,03/27/2021,08/04/2020,2020 Pneumococcal conjugate 20 va lent (Prevnar 20, PCV 20) 2mo and older 08/13/2023 Td Tetanus diptheria (Tdvax) 7yo and older 01/31/2006 Tdap Tetanus diptheria acell ular pertussis (Boostrix; Adacel) 7yo and older 05/09/2016 Surgical History Surgery Date Site/Laterality Comments COLONOSCOPY 07/20/2008 PROCEDURE: OK COLONOSCOPY FLX DX W/COLLJ SPEC WHEN PFRMD; COMMENT: Normal TONSILLECTOMY PROCEDURE: HISTORICAL TONSILLECTOMY COLONOSCOPY 01/26/2014 PROCEDURE: OK COLONOSCOPY FLX DX W/COLLJ SPEC WHEN PFRMD; [...] care for your loved ones. For example, teacher early childhood development or elderly care for an older adult? [...] Date Recorded What is your living situation? Unrecognized valu e 05/28/2024 Comments Unknown Sex and Gender Information [...] 60.6 kg (133 lb 9.6 oz) 08/19/19 25 1:34 PM EDT Height 157.5 cm (5' 2 ) 08/18/2024 1:34 PM EDT Body Mass Index 24.44 08/18/2024 1:34 PM EDT Plan of Treatment Upcoming Encounters Date Type Department Care Team (Late st Contact Info) Description 01/21/2025 2:00 PM EDT Appointment Bone Density - [place] [address] [place], [place] [address], [place] [address] 02/15/2025 12:45 PM EST Office Visit Adult Medicine [facility] [address] [place], [place] [phone] Tia Bhandari PA [address] [place], [place] Health Maintenance Due Date Last Done Comments Zoster Vaccines (1 of 2) 1977 Osteoporosis Screening (Bone Density Screening) 03/24/2022 Medicare Annual Wellness Visit 08/12/2024 08/13/2023 COVID-19 Vaccine ( season) 2024 08/25/2021, 03/27/2021, 08/04/2020, Additional history exists Influenza Vaccine (#1) 2024 , 01/29/2020, 02/20/2019, [...] Procedure Name Priority Date/Time Associated Diagnosis Comments LIPID PANEL WITH REFLEX TO DIRECT LDL [...] Recently Relevant to Health Maintenance Results * (ABNORMAL) Lipid panel with reflex to direct LDL (08/18/2024 2:41 PM EDT) Cholesterol 223(H) 0 - 200 mg/dL LAB CHEMISTRY METHOD 08/18/2024 5:40 PM EDT [facility] Triglycerides 65 0 - 150 mg/dL LAB CHEMISTRY METHOD 08/18/2024 5:40 PM EDT [facility] HDL 89 >=40 mg/dL LAB CHEMISTRY METHOD 08/18/2024 5:40 PM EDT [facility] LDL Calculated 121(H) 0 - 100 mg/dL LAB CHEMISTRY METHOD 08/18/2024 5:40 PM EDT [facility] VLDL Cholesterol Juancho 13 mg/dL LAB CHEMISTRY METHOD 08/18/2024 5:40 PM EDT [facility] Non HDL Chol. (LDL+VLDL) 134 <145 mg/dL LAB CHEMISTRY METHOD 08/18/2024 5:40 PM EDT [facility] Chol/HDL Ratio 2.5 0.0 - 4.4 LAB CHEMISTRY METHOD 08/18/2024 5:40 PM EDT [facility] Blood Venous blood specimen / Unknown Venipuncture / Unknown 08/18/2024 2:41 PM EDT 08/18/2024 2:41 PM EDT Rich OREILLY LAB BLOOD ORDERABLES Mariann jc Result [facility] [address] [place] [address], [place] [phone] * Colonoscopy (10/16/2023) Colonoscopy no interpretation , abstracted Anatomical Region Laterality Modality Other Historical Provider HEALTH MAINTENANCE Final Result * Depression Screening (08/13/2023) Depression Screening abstracted [facility] Provider HEALTH MAINTENANCE Final Result * SCREENING MAMMOGRAPHY [...] Recently Relevant to Health Maintenance Insurance MEDICARE [facility] Care Teams Air Brake Man Relationship Specialty Start Date End Date Rich Bolanos PA [address] [place] [address] PCP - General Internal Medicine 09/21/20
--- OUTSIDE RECORDS SUMMARY | 2025-01-19 18:01 | XMS_ITS | Clinical Summary ---
Author Organization [facility] Address [address] [facility] [address] [place] [address] Phone Care Team Providers Care Top Polisher Name Role Phone Unavailable Primary Care Provider [...] It is not the complete legal health record.[facility]
--- OUTSIDE RECORDS SUMMARY | 2025-01-19 18:01 | XMS_ITS | Encounter Summary ---
Author Organization [facility] Address [address] [place] [address] Care Team Providers Care Control Director Name Role Phone Rogelio Taylor MD Primary Care Provider + [phone] Rich Bolanos PA-C Primary Care Provider [phone] Reason for Visit * Reason Comments E-prescribe Rx Request Encounter Details Date Type Department Care Team Description 09/17/2017 Refill Adult Medicine [address] [phone] Rich Bolanos PA-C [address] [place] [address] [phone] E-prescribe Rx Request Social History Tobacco Use [...] encounter Miscellaneous Notes * Telephone Encounter - Kenrickchadwick Vira - 09/17/2017 10:25 AM EDT Patient would like script to be: E-PRESCRIBED/FAXED TO PHARMACY WHEN WAS THE PATIENT'S LAST APPOINTMENT IN ADULT MEDICINE? 06/05/17 WHEN WAS THE LAST TIME THE PATIENT SAW THEIR PCP? Same as above Does patient have an upcoming appointment? Yes 08/20/18 (THE MEDICATION REQUESTED IS ON THE MED LIST ABOVE) All of the medications requested were on the CURRENT MEDS list Did you check the Pharmacy information above?: YES Patient wants: 30 -day supply Is this a mail order prescription request ? NO Patients current insurance carrier is: Payor: [employer] FFS / Plan: [employer] PLUS PLAN / Product Type: MEDICAID RISK documented in this encounter Plan of Treatment Not on file documented as of this encounter Visit Diagnoses Not on filedocumented in this encounter Additional Health Concerns Infection Onset Date Last Indicated Resolved Time COVID-19 Comment:Patient reporting positive test 12/2312/23/2022 12/24/2022 documented as of this encounter Care Teams Control Director Relationship Specialty Start Date End Date Rogelio Taylor MD [address] [place] [address] PCP - General [birth year]/07/2000 09/20/20 Rich Bolanos PA-C [address] [place] [address] PCP - General Internal Medicine 09/21/20 documented as of this encounter
--- OUTSIDE RECORDS SUMMARY | 2025-01-19 18:01 | XMS_ITS ---
Author Name [facility] Organization Unknown Care Team Organization Name Specialty Phone Email Start Date End Da te [facility] Rich Bolanos Primary Care 06/20/2022 [facility] Rubens Solano Primary Care 02/20/20222023
--- OUTSIDE RECORDS SUMMARY | 2025-01-19 18:01 | XMS_ITS | Encounter Summary ---
Author Organization [facility] Address [address] [place] [address] Care Team Providers Care Plant Associate Name Role Phone Rogelio Taylor MD Primary Care Provider + [phone] Rich Bolanos PA-C Primary Care Provider [phone] Reason for Visit * Reason Comments E-prescribe Rx Request Encounter Details Date Type Department Care Team Description 06/07/2018 Refill OBGYN - [place] [address] [place] [address] Janette Cox MD [address] [place] [address] [phone] E-prescribe Rx Request Social History Tobacco Use [...] encounter Miscellaneous Notes * Telephone Encounter - Polly Vargas M.A. - 06/09/2018 10:51 AM EST Please consider this refill in providers absence. -Taz * Telephone Encounter - Luci Banegas - 06/09/2018 9:41 AM EST WHEN WAS THE PATIENTS LAST ANNUAL ENVIRONMENTAL FIELD SERVICES TECHNICIAN EXAM? 01/23/18 Does patient have an upcoming appointment? No to early to schedule appt (THE MEDICATION REQUESTED IS ON THE MED LIST ABOVE) Did you check the Pharmacy information above?: YES Indicate how soon the patient needs the script: BY THE END OF THE DAY Patient would like script to be: E-PRESCRIBED/FAXED TO PHARMACY Is the doctor here today?: NO Can the message wait until the doctor returns?: NO Has the patient been told that the prescription will not be filled until the end of the day? NO Payor: [employer] FFS / Plan: [facility] [employer] / Product Type: MEDICAID RISK documented in this encounter Plan of Treatment Not on file documented as of this encounter Visit Diagnoses Diagnosis Atrophic vaginitis Postmenopausal atrophic vaginitis documented in this encounter Additional Health Concerns Infection Onset Date Last Indicated Resolved Time COVID-19 Comment:Patient reporting positive test 12/2312/23/2022 12/24/2022 documented as of this encounter Care Teams Plant Associate Relationship Specialty Start Date End Date Rogelio Taylor MD [address] [place] [address] PCP - General [birth year]/07/1998 09/20/20 Rich Bolanos PA-C [address] [place] [address] PCP - General Internal Medicine 09/21/20 documented as of this encounter
--- OUTSIDE RECORDS SUMMARY | 2025-01-19 18:01 | XMS_ITS | Encounter Summary ---
Author Organization [facility] Address [address] [place] [address] Care Team Providers Care Ship Worker Name Role Phone Rich Bolanos PA-C Primary Care Provider [phone] Reason for Visit * Reason Onset Date Comments Medication 10/02/2023 Encounter Details Date Type Department Care Team Description 10/02/2023 Refill Gastroenterology - [place] [address] [facility] [address] [place] [phone] Nino Dietrich MD [address] [facility] [address] [place] [address] Medication Social History Tobacco Use Types Packs/Day Years [...] documented as of this encounter Care Teams Ship Worker Relationship Specialty Start Date End Date Rich Bolanos PA-C [address] [place] [address] PCP - General Internal Medicine 09/21/20 documented as of this encounter
--- OUTSIDE RECORDS SUMMARY | 2025-01-19 18:02 | XMS_ITS | Encounter Summary ---
Author Organization [facility] Address [address] [place] [address] Care Team Providers Care Ore Dryer Name Role Phone Rich Bolanos PA-C Primary Care Provider [phone] Encounter Details Date Type Department Care Team Description 04/26/2023 Pt. Non Urgent Medical Question Adult Medicine [address] [address] Lasha Rogers PA-C [address] [place] [address] Social History Tobacco Use Types Packs/Day Years [...] encounter Miscellaneous Notes * Telephone Encounter - Elizabeth Fitzgerald M.A. - 04/26/2023 4:35 PM ESTFrom: Lizeth Tee To: Nella Rogers Sent: 04/26/2023 4:26 PM EST Subject: Good Evening Good Evening Lasha Rogers, You???ve successfully been treating me for pneumonia. I shared with you that my caught pneumonia from me. He went to urgent care at an outside facility and he???s suppose to see a doctor next week. I attempted to set him up with an appointment with your team. His insurance was all verifie d. Yet scheduling says your team is not taking ???new patients???. He???s being considered a ???new patient??? since he hasn???t been to [facility] in many years (Rogelio Taylor was his doc since 1995 til he retired) Is there anyway he can be added under your team since he really isn???t a ???new patient? His name and : Murali AlexisNanci Tee [birth year] I thought it would be worth checking. Thank you for your time. documented in this encounter Plan of Treatment Not on file documented as of this encounter Visit Diagnoses Not on filedocumented in this encounter Additional Health Concerns Infection Onset Date Last Indicated Resolved Time COVID-19 Comment:Patient reporting positive test 12/2312/23/2022 12/24/2022 documented as of this encounter Care Teams Ore Dryer Relationship Specialty Start Date End Date Rich Bolanos PA-C [address] [place] [address] PCP - General Internal Medicine 09/21/20 documented as of this encounter
--- OUTSIDE RECORDS SUMMARY | 2025-01-19 18:02 | XMS_ITS | Encounter Summary ---
Author Organization [facility] Address [address] [place] [address] Care Team Providers Care Drill Press Hand Name Role Phone Rich Bolanos PA-C Primary Care Provider [phone] Reason for Visit * Reason Comments E-prescribe Rx Request Encounter Details Date Type Department Care Team Description 08/06/2022 Refill OBGYN - [place] [address] [place] [address] Janette Cox MD [address] [place] [address] E-prescribe Rx Request Social History Tobacco Use [...] encounter Miscellaneous Notes * Telephone Encounter - Maggie Betancur - 08/07/2022 9:13 AM EDT WHEN WAS THE PATIENTS LAST ANNUAL WOOL GRADER EXAM? 03/26/22 Does patient have an upcoming appointment? No, on waitlist (THE MEDICATION REQUESTED IS ON THE MED [...] the end of the day? NO Payor: [facility] FFS / Plan: [facility] [employer] / Product Type: MEDICAID RISK documented in this encounter Plan of Treatment Not on file documented as of this encounter Visit Diagnoses Diagnosis Vaginal atrophy Postmenopausal atrophic vaginitis Lichen sclerosus Circumscribed scleroderma documented in this encounter Additional Health Concerns Infection Onset Date Last Indicated Resolved Time COVID-19 Comment:Patient reporting positive test 12/2312/23/2022 12/24/2022 documented as of this encounter Care Teams Drill Press Hand Relationship Specialty Start Date End Date Rich Bolanos PA-C [address] [place] [address] PCP - General Internal Medicine 09/21/20 documented as of this encounter
--- OUTSIDE RECORDS SUMMARY | 2025-01-19 18:02 | XMS_ITS | Encounter Summary ---
Author Organization [facility] Address [address] [place] [address] Care Team Providers Care Flyer Maker Name Role Phone Rogelio Taylor MD Primary Care Provider + [phone] Rich Bolanos PA-C Primary Care Provider [phone] Reason for Visit * Reason Onset Date Comments Provider Call Back 06/26/2011 Encounter Details Date Type Department Care Team Description 06/26/2011 Telephone Adult Medicine [address] [phone] Rogelio Taylor MD [address] [place] [address] [phone] Provider Call Back Social History Tobacco Use Types Packs/Day Years Used Date Smoking Tobacco: Never Alcohol Use Standard Drinks/Week Comments Yes 0 (1 standard drink = 0.6 oz pur e alcohol) rarely Sex Assigned at Date Recorded Not on file Job Start Date Occupation Industry Not on file Not on file Not on file documented as of this encounter Miscellaneous Notes * Telephone Encounter - Anna Saucedo - 06/26/2011 11:20 AM EDT Caller requesting call back from provider: Is the caller the patient? YES If caller is not the patient, what is the callers name? Callers relationship to patient? If person calling is not the patient themselves, is there a verbal release in FYI or permanent comments for this person: YES Reason for call back: FYI: The patient would like to say Thank You to Dr. Castellano for the script that was called in, really saved her a lot of money. Caller offered to speak with the nurse for assistance: NO Response: Dr. Castellano documented in this encounter Plan of Treatment Not on file documented as of this encounter Visit Diagnoses Not on filedocumented in this encounter Additional Health Concerns Infection Onset Date Last Indicated Resolved Time COVID-19 Comment:Patient reporting positive test 12/2312/23/2022 12/24/2022 documented as of this encounter Care Teams Flyer Maker Relationship Specialty Start Date End Date Rogelio Taylor MD [address] [place] [address] PCP - General [birth year]/07/2000 09/20/20 Rich Bolanos PA-C [address] [place] [address] PCP - General Internal Medicine 09/21/20 documented as of this encounter
--- OUTSIDE RECORDS SUMMARY | 2025-01-19 18:02 | XMS_ITS | Encounter Summary ---
Author Organization [facility] Address [address] [place] [address] Care Team Providers Care Bakery Helper Name Role Phone Rogelio Taylor MD Primary Care Provider + [phone] Rich Bolanos PA-C Primary Care Provider [phone] Reason for Visit * Reason Comments E-prescribe Rx Request Encounter Details Date Type Department Care Team Description 03/30/2016 Refill Adult Medicine [address] [phone] Rogelio Taylor MD [address] [place] [address] E-prescribe Rx Request Social History Tobacco Use [...] encounter Miscellaneous Notes * Telephone Encounter - Gwen Lopez M.A. - 03/30/2016 4:52 PM EST Component Value Date CHOL 194 12/15/2014 LDL 86 12/15/2014 HDL 92 12/15/2014 TRIG 82 12/15/2014 SGOT 23 12/15/2014 SGPT 14 12/15/2014 * Telephone Encounter - Shana Hartman - 03/30/2016 4:45 PM EST Patient would like script to be: E-PRESCRIBED/FAXED TO PHARMACY WHEN WAS THE PATIENT'S LAST APPOINTMENT IN ADULT MEDICINE? 12/15/14 WHEN WAS THE LAST TIME THE PATIENT SAW THEIR PCP? Same as above Does patient have an upcoming appointment? No-no answer, no voicemail documented x2 (Please verify telephone contact #'s at next phone call) (THE MEDICATION REQUESTED IS ON THE MED LIST ABOVE) All of the medications requested were on the CURRENT MEDS list Did you check the Pharmacy information above?: YES Patient wants: 30 -day supply Is this a mail order prescription request ? NO Patients current insurance carrier is: Payor: [employer] FFS / Plan: [employer] PLUS PLAN / Product Type: MEDICAID RISK documented in this encounter Plan of Treatment Not on file documented as of this encounter Visit Diagnoses Not on filedocumented in this encounter Additional Health Concerns Infection Onset Date Last Indicated Resolved Time COVID-19 Comment:Patient reporting positive test 12/2312/23/2022 12/24/2022 documented as of this encounter Care Teams Bakery Helper Relationship Specialty Start Date End Date Rogelio Taylor MD [address] [place] [address] [phone] PCP - General 03/07/2000 09/20/20 Rich Bolanos PA-C [address] [place] [address] [phone] PCP - General Internal Medicine 09/21/20 documented as of this encounter
--- OUTSIDE RECORDS SUMMARY | 2025-01-19 18:02 | XMS_ITS | Encounter Summary ---
Author Organization [facility] Address [address] [place] [address] Care Team Providers Care Retail Marketing Manager Name Role Phone Rogelio Taylor MD Primary Care Provider + [phone] Rich Bolanos PA-C Primary Care Provider +[phone] Reason for Visit * Reason Comments E-prescribe Rx Request Encounter Details Date Type Department Care Team Description 08/19/2018 Refill OBGYN - [place] [address] [place], [place] [phone] Blaine Oscar MD [address] [place], [place] [phone] E-prescribe Rx Request Social History Tobacco Use [...] encounter Miscellaneous Notes * Telephone Encounter - Donya Green M.A. - 08/19/2018 10:48 AM EDT Please review. Has appt yessenia 08/20/18-MO * Telephone Encounter - Pamela Carter - 08/19/2018 9:52 AM EDT WHEN WAS THE PATIENTS LAST ANNUAL PRESS TOOL MAKER EXAM? 01/30 Does patient have an upcoming appointment? No (THE MEDICATION REQUESTED IS ON THE MED LIST ABOVE) Did you check the Pharmacy information above?: NO Indicate how soon the patient needs the script: BY THE END OF THE DAY Patient would like script to be: E-PRESCRIBED/FAXED TO PHARMACY Is the doctor here today?: YES Can the message wait until the doctor returns?: YES Has the patient been told that the prescription will not be filled until the end of the day? NO Payor: [employer] FFS / Plan: [facility] [employer] / Product Type: MEDICAID RISK documented in this encounter Plan of Treatment Not on file documented as of this encounter Visit Diagnoses Diagnosis Atrophic vaginitis Postmenopausal atrophic vaginitis documented in this encounter Additional Health Concerns Infection Onset Date Last Indicated Resolved Time COVID-19 Comment:Patient reporting positive test 12/2312/23/2022 12/24/2022 documented as of this encounter Care Teams Retail Marketing Manager Relationship Specialty Start Date End Date Rogelio Taylor MD [address] [place] [phone] PCP - General [birth year]/07/1998 09/20/20 Rich Bolanos PA-C [address] [place] [address] PCP - General Internal Medicine 09/21/20 documented as of this encounter
== END 2025-01-19 15:26 | disposition home or self-care (01) ==
LOC: HO.HSM 14:45
PROVIDERS: PCP Physician Assistant Medical; Visit Provider Psychiatry & Neurology Neurology
DX: G31.84 Mild cognitive impairment of uncertain or unknown etiology (principal); G47.30 Sleep apnea, unspecified; R90.82 White matter disease, unspecified
CPT/HCPCS: 99214

== ENCOUNTER → 2025-01-19 14:44 | Outpatient (BNVA) | payer MEDICARE, SELFPAY | PROVIDERS: PCP Physician Assistant Medical; Visit Provider Psychiatry & Neurology Neurology | DX: G31.84 Mild cognitive impairment of uncertain or unknown etiology (principal); G47.30 Sleep apnea, unspecified; R90.82 White matter disease, unspecified | CPT/HCPCS: 99212 ==